=== PATIENT | male | born 1960 | race Caucasian/White ===

== ENCOUNTER 2024-07-15 18:45 | Emergency (ER) | payer MEDICARE, MEDICAID, SELFPAY ==
[2024-07-15 18:50] VITALS: BP 106/56; PULSE 103; RESP 19; TEMP 38.6; O2SAT 97; BMI 29.7
--- NOTE | 2024-07-15 19:03 | XR_ITS ---
Sitting examination: AP chest single view Technique one AP portable semiupright chest single view Exam date and time: July 15, 2024 at 1919 hrs. Indications: Chest pain today. Findings: Normal heart size Lungs are clear. The osseous structures are intact Impression: No active disease
--- NOTE | 2024-07-15 19:04 | EDNOTE_ITS ---
<Statement entered by Charlotte Nesbitt MD - 07/15/24 23:19> As co-signing physician, I was present and available for consult prn. I concur with the plan and care as documented by the midlevel provider. ED General RME/HPI General Chief complaint: Chest Pain Stated complaint: CHEST PAIN Time Seen by Provider: 07/15/24 19:01 Arrival date/time: 07/15/24 18:45 CC: Chest pain left anterior rating to the left armpit onset approximately 1 hour ago EMS report stable vital signs. However upon arrival patient noted to be tachycardic and febrile. Patient states he has had a cough for past several days. Patient is sharp, 3-4 on a 10 scale nonradiating. Prior history of MA Related Data Home Medications ?Medication ?Instructions ?Recorded ?Confirmed atorvastatin 20 mg tablet 40 mg PO QAM 10/07/20 10/22/22 acetaminophen 325 mg tablet 650 mg PO BID Arthritis 04/29/21 10/22/22 (Tylenol) aspirin 81 mg chewable tablet 81 mg PO QAM 04/29/21 10/22/22 clopidogrel 75 mg tablet 1 tab PO QDAY 04/19/22 10/22/22 Allergies Allergy/AdvReac Type Severity Reaction Status Date / Time No Known Allergies Allergy Verified 07/15/24 19:08 Review of Systems Review of Systems Narrative Review of Systems: GEN: No fever, no chills, no weight loss EYES: No discharge, no visual changes, no pain HEENT: No ear pain, no congestion, no sore throat PULM: No shortness of breath, + cough, no congestion CV: + chest pain, no dyspnea on exertion, no palpitations GI: No nausea, no vomiting, no diarrhea, no pain, no constipation : No frequency, no urgency, no dysuria MUSC/SKEL: No joint pain, no back pain SKIN: No rash PSYCH: No hallucinations, no depression HEME/LYMPH: No easy bleeding or bruising tendencies NEURO: No weakness, no headache Past Medical History Past Medical History NEUROLOGIC: Negative Neurological Disorders or Seizures CARDIAC: Positive Myocardial Infarction, Coronary Artery Disease and Hypercholesterolemia; Negative Cardiac Disorders (MA) or Congestive Heart Failure RESPIRATORY: Positive Pneumonia; Negative Chronic Obstructive Pulmonary Disease (COPD) or Asthma GASTROINTESTINAL: Positive Gastrointestinal Disorders, Hiatal Hernia and Gastroesophageal Reflux Disease GENITOURINARY: Negative Genitourinary Disorders or Renal Disease MUSCULOSKELETAL: Positive Musculoskeletal Disorders, Arthritis and Fractures ENT: Positive Ear Infection ENDOCRINE: Negative Endocrine Disorders, Diabetes Mellitus Type 1 or Diabetes Mellitus Type 2 HEMATOLOGIC: Negative Blood Disorders or Sickle Cell Disease OTHER HISTORY: Positive Chicken Pox, Measles and Mumps; Negative Autoimmune Disease, Blood Transfusions, Blood Transfusion Reaction, Anesthesia Reactions or Cancer Family History FAMILY HISTORY: Positive Family Cardiac Disorders, Family Gastrointestinal Problems and Family Cancer; Negative Family Psychiatric Problems, Family Respiratory Disorders, Family Surgery or Family Anesthesia Reaction Surgical History SURGICAL: Positive Cardiac Surgery and Coronary Stent Social History SMOKING STATUS: Current every day smoker SUBSTANCE USE: does not use ED Exam Narrative Physical exam: [General: Obese not in any acute distress Head normocephalic HEENT: Within acceptable limits Neck is supple nontender Chest equal chest rise nontender to palpation Respiratory: Clear to auscultation no wheezes crackles or rubs CV: Rate rhythm is regular no murmurs rubs or clicks Abdomen is soft nontender no masses positive bowel sounds all 4 quadrants Back: No CVA tenderness no spinous process tenderness from cervical spine thoracic and lumbar spine Skin: Intact no petechiae rash induration ulceration or crepitus Extremities: Moving all extremity against resistance cap refill less than 2 seconds neurosensory intact Neuro: Awake alert oriented x3 Glascow coma 15 no focal deficits] Course Quality Measures none Orders Category Date Time Status Bedside COVID-19 Antigen Test NOW Care 07/15/24 19:06 Active Bedside Influenza A&B Antigen Test NOW Care 07/15/24 19:07 Completed Order Checker STAT Care 07/15/24 19:02 Active Continuous Pulse Oximetry STAT Care 07/15/24 19:02 Completed EKG (ED ONLY) *Do not use* NOW Care 07/15/24 19:02 Completed In and Out Catheter X1PRN Care 07/15/24 19:02 Active Insert IV NOW Care 07/15/24 19:02 Active NPO STAT Care 07/15/24 19:02 Active Strict Intake and Output Routine Care 07/15/24 19:02 Ordered EKG (ED Only) Stat Exams 07/15/24 19:02 Ordered XR chest 1V Stat Exams 07/15/24 19:03 Completed B-Type Natriuretic Peptide Stat Lab 07/15/24 19:21 Completed Blood Culture (Lab) Stat Lab 07/15/24 19:26 Received CBC Stat Lab 07/15/24 19:21 Completed Comprehensive Metabolic Panel Stat Lab 07/15/24 19:21 Completed LDH (Lactate Dehydrogenase) Stat Lab 07/15/24 19:21 Completed Lactate (Lactic Acid) Stat Lab 07/15/24 19:21 Completed Lipase Stat Lab 07/15/24 19:21 Completed Magnesium Stat Lab 07/15/24 19:21 Completed Partial Thromboplastin Time Stat Lab 07/15/24 19:21 Completed Phosphorous Stat Lab 07/15/24 19:21 Completed Procalcitonin Stat Lab 07/15/24 19:21 Completed Prothrombin Time with INR Stat Lab 07/15/24 19:21 Completed Troponin I Stat Lab 07/15/24 19:21 Completed Troponin I Stat Lab 07/15/24 21:28 Completed Urinalysis Stat Lab 07/15/24 19:02 Ordered Urine Culture Stat Lab 07/15/24 19:02 Ordered Acetaminophen Tab [Tylenol Tab] Med 07/15/24 19:06 Discontinued 650 mg PO X1 ONE Sodium Chloride 0.9% 1000 ml [Ns] 1,000 ml Med 07/15/24 21:06 Discontinued IV 999 mls/hr Oxygen Delivery NOW RT 07/15/24 19:02 Active Vital Signs Vital signs: Vital Signs Temperature 101.4 F H 07/15/24 18:50 Pulse Rate 103 H 07/15/24 18:50 Respiratory Rate 07/15/24 18:50 Blood Pressure 106/56 L 07/15/24 18:50 Pulse Oximetry (%) 97 07/15/24 18:50 Oxygen Delivery Method Room Air 07/15/24 18:50 [facility] Patient data External records reviewed:: [facility] previous records and EMS form Clinical information provided by:: patient and EMS Social determinants that could affect healthcare access:: none Patient has the following chronic illnesses:: Prior MA blood thinners hypercholesterolemia How is presenting disease/condition affected by chronic disease/condition?: u neffected by Evaluation data The following diagnostics were reviewed and interpreted by me:: lab results, radiology exam(s) and EKG tracing(s) Lab and/or radiology exams considered but not ordered:: EKG performed at 1923 shows a ventricular rate of 9 5 MD interval 146 QRS of 88 QTc of 384 this is sinus rhythm nonspecific ST segment changes CBC shows a mild leukocytosis of 15.2 there is a stable anemia no thrombocytopenia Coags within acceptable limits CMP shows a mildly elevated glucose no other electrolyte imbalances renal impairment transaminitis or T. bili elevation Byrnes Troponin is negative BNP is negative Procalcitonin is 0.07 Lipase is 68 COVID influenza are negative Delta troponin is negative. Interpretation Summary: Chest pain probably noncardiac. The patient did have a temperature I suggest the suspect this is viral syndrome Medications Medications considered but not ordered:: None Medication administrations:: Medication Administration History Discontinued Medications Acetaminophen (Acetaminophen 325 Mg Tablet) 650 mg PO X1 ONE Stop: 07/15/24 19:07 Last Admin: 07/15/24 19:18 Dose: 650 mg Documented By: CVL Sodium Chloride (Ns) 1,000 mls @ 999 mls/hr IV .Q1H1M ONE Stop: 07/15/24 22:06 Last Infusion: 07/15/24 22:10 Dose: Infused Documented By: Admin: 07/15/24 21:11 Dose: 999 mls/hr Documented By: CVL None Consultations Consultation(s) initiated? (list below): No Diagnosis Differential Diagnosis ED Complaint MDM: ACS MA pneumonia sepsis Most likely diagnosis given after review of the tests above:: Chest pain probable noncardiac viral syndrome. Admission Indicated Admission indicated?: not indicated Explain why admission is indicated or not indicated:: Stable for outpatient follow-up Admission Request Was there a request for admission?: No Disposition Plan Disposition Plan: Discharge Discharge Attestation Discharge Attestation: The patient and all family members were given an opportunity to ask questions and understood the discharge instructions. Discharge instructions specifically effects, indications for sooner follow up or return to the emergency department, and the expected course of current diagnosis. Patient condition: Stable Medical Decision Making Differential Diagnosis Differential Diagnosis: ACS MA pneumonia sepsis Lab Data 07/15/24 19:21 07/15/24 19:21 Labs: Lab Results 07/15/24 07/15/24 Range/Units 19:21 21:28 WBC 15.2 H (3.8-10.6) Thou/mm3 RBC 4.20 L (4.50-5.90) Miln/mm3 Hgb 13.4 L (13.5-16.0) g/dL Hct 40.3 L (41.0-53.0) % MCV 96 (80-100) fL MCH 31.9 (25.0-35.0) pg MCHC 33.3 (31.0-37.0) g/dl RDW Std Deviation 44.8 H (35.1-43.9) fL Plt Count 218 (140-440) Thou/mm3 Neut % (Auto) 71 (37-80) % Lymph % (Auto) 17 (10-50) % [place] % (Auto) 9 (0-12) % Eos % (Auto) 3 (0-10) % Baso % (Auto) 0 (0-2.5) % Neut # (Auto) 10.8 H (1.8-7.7) Thou/mm3 Lymph # (Auto) 2.5 (1.0-4.8) Thou/mm3 [place] # (Auto) 1.3 H (0.0-0.8) Thou/mm3 Eos # (Auto) 0.4 (0.0-0.5) Thou/mm3 Baso # (Auto) 0.1 (0.0-0.2) Thou/mm3 Immature Gran # (Auto) 0.05 H (0.00-0.00) Thou/mm3 Absolute Nucleated RBC 0.00 (0.00-0.00) Thou/mm3 Immature Gran % 0 (0-0) % Nucleated RBC % 0 (0) /100 WBC PT 10.9 (9.0-12.2) Seconds INR 1.0 (0.9-1.3) APTT 23.1 (22.0-36.0) Seconds Sodium 138 (136-145) mMol/L Potassium 3.9 (3.4-5.1) mMol/L Chloride 107 (98-107) mMol/L Carbon Dioxide 25.3 (20.0-31.0) mMol/L Anion Gap 6 L (7-16) BUN 14 (9-23) mg/dL Creatinine 1.0 (0.6-1.3) mg/dL Estim Creat Clear Calc 77.2 (>60) mL/min eGFR > 60 (60 - ) See Note BUN/Creatinine Ratio 14 (12-20) Ratio Glucose 126 H (74-106) mg/dL Calculated Osmolality 278 (275-295) Lactic Acid 1.2 (0.4-2.0) mMol/L Calcium 9.5 (8.3-10.6) mg/dL Corrected Calcium 9.5 (8.5-10.1) mg/dL Phosphorus 2.1 L (2.4-5.1) mg/dL Magnesium 2.0 (1.6-2.6) mg/dL Total Bilirubin 0.5 (0.3-1.2) mg/dL AST 21 (0-34) U/L ALT 24 (10-49) U/L Alkaline Phosphatase 99 (46-116) U/L Lactate Dehydrogenase 158 (120-246) U/L Troponin I < 0.020 < 0.020 (0.0-0.045) ng/mL B-Natriuretic Peptide < 20 (0-100) pg/mL Total Protein 7.1 (5.7-8.2) gm/dL Albumin 4.7 (3.4-4.8) gm/dL Globulin 2.4 (2.3-3.5) gm/dL Albumin/Globulin Ratio 2.0 (1.2-2.2) Lipase 68 H (12-53) U/L Procalcitonin 0.07 (0.0-0.49) ng/ml Discharge Plan Plan Patient Disposition: HOME (Self Care) Patient condition on transfer: Stable Prescriptions/Referrals Prescriptions/Med Rec: No Action atorvastatin 20 mg Tablet 40 mg PO QAM acetaminophen [Tylenol] 325 mg Tablet 650 mg PO BID aspirin 81 mg Tablet,Chewable 81 mg PO QAM Hold Instructions: Resume on 04/21/22. Rx Instructions: STOPPED ON Tuesday04/27/[address]'S ORDERS FOR 7 DAYS clopidogrel 75 mg tablet 1 tab PO QDAY Hold Instructions: Resume on 04/23/22. 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
[2024-07-15 19:18] VITALS: TEMP 38.6
[2024-07-15] MEDS: ACETAMINOPHEN 325 MG TABLET 650 MG PO (19:18)
[2024-07-15 19:21] VITALS: PULSE 107
[2024-07-15 19:33] LABS: Lactate (Lactic Acid) 1.2 mMol/L (0.4-2.0)
[2024-07-15 19:38] LABS: Basophils # (Auto) 0.1 Thou/mm3 (0.0-0.2); Basophils % (Auto) 0 % (0-2.5); Eosinophils # (Auto) 0.4 Thou/mm3 (0.0-0.5); Eosinophils % (Auto) 3 % (0-10); Hematocrit 40.3 % (41.0-53.0); Hemoglobin 13.4 g/dL (13.5-16.0); Immature Granulocytes % (Auto) 0 % (0-0); Immature Granulocytes Auto 0.05 Thou/mm3 (0.00-0.00); Lymphocytes # (Auto) 2.5 Thou/mm3 (1.0-4.8); Lymphocytes % (Auto) 17 % (10-50); Mean Corpuscular HGB Conc 33.3 g/dl (31.0-37.0); Mean Corpuscular Hemoglobin 31.9 pg (25.0-35.0); Mean Corpuscular Volume 96 fL (80-100); Monocytes # (Auto) 1.3 Thou/mm3 (0.0-0.8); Monocytes % (Auto) 9 % (0-12); Neutrophils # (Auto) 10.8 Thou/mm3 (1.8-7.7); Neutrophils % (Auto) 71 % (37-80); Nucleated Red Blood Cell % 0 /100 WBC (0); Platelet Count 218 Thou/mm3 (140-440); RDW Standard Deviation 44.8 fL (35.1-43.9); White Blood Count 15.2 Thou/mm3 (3.8-10.6)
[2024-07-15 19:49] LABS: B-Type Natriuretic Peptide < 20 pg/mL (0-100); Partial Thromboplastin Time 23.1 Seconds (22.0-36.0); Prothrombin Time 10.9 Seconds (9.0-12.2)
[2024-07-15 19:57] LABS: Alanine Aminotransferase 24 U/L (10-49); Albumin, Serum 4.7 gm/dL (3.4-4.8); Alkaline Phosphatase 99 U/L (46-116); Anion Gap 6 (7-16); Aspartate Amino Transferase 21 U/L (0-34); BUN/Creatinine Ratio 14 Ratio (12-20); Bilirubin,Total 0.5 mg/dL (0.3-1.2); Blood Urea Nitrogen 14 mg/dL (9-23); Calcium 9.5 mg/dL (8.3-10.6); Calcium (Corrected) 9.5 mg/dL (8.5-10.1); Carbon Dioxide 25.3 mMol/L (20.0-31.0); Chloride 107 mMol/L (98-107); Estimated Creatinine Clearance 77.2 mL/min (>60); Globulin 2.4 gm/dL (2.3-3.5); Glucose 126 mg/dL (74-106); LDH (Lactate Dehydrogenase) 158 U/L (120-246); Lipase 68 U/L (12-53); Osmolality,Calculated 278 (275-295); Phosphorous 2.1 mg/dL (2.4-5.1); Potassium 3.9 mMol/L (3.4-5.1); Procalcitonin 0.07 ng/ml (0.0-0.49); Sodium 138 mMol/L (136-145); Total Protein 7.1 gm/dL (5.7-8.2); Troponin I < 0.020 ng/mL (0.0-0.045); eGFR > 60 See Note
[2024-07-15 21:03] VITALS: BP 91/48; PULSE 89; RESP 19; TEMP 37.7; O2SAT 96
[2024-07-15 21:10] VITALS: TEMP 37.7
[2024-07-15] MEDS: SODIUM CHLORIDE 0.9% 1000 ML 1,000 ML 999 ML IV (21:11)
[2024-07-15 22:26] LABS: Troponin I < 0.020 ng/mL (0.0-0.045)
[2024-07-15 22:53] LABS: Collection Type, Urine Clean Catch; RBC,Urine 0 /hpf (0-3); Squamous Epithelial Cell,Urine 0 /hpf (0-5); WBC,Urine 0 /hpf (0-5)
[2024-07-15 23:21] LABS: Bilirubin,Urine Negative (Negative); Blood,Urine Negative (Negative); Clarity,Urine Clear (Clear/Hazy); Color,Urine Yellow (Lt Yel-Yel); Glucose, Urine Negative (Negative); Ketones,Urine Negative (Negative); Leukocyte Esterase,Urine Negative (Negative); Nitrite,Urine Negative (Negative); PH,Urine 6.5 (5.0-7.0); Protein,Urine Trace (Neg - Trace); Specific Gravity,Urine 1.029 (1.001-1.035); Urobilinogen,Urine Negative mg/dL (0.0-1.0)
[2024-07-15 23:37] VITALS: BP 115/61; PULSE 98; RESP 21; O2SAT 97
== END 2024-07-15 23:39 | disposition home or self-care (01) ==
LOC: SERX 23:35
PROVIDERS: Registered Nurse General Practice; Emergency Provider Emergency Medicine
DX: R07.9 Chest pain, unspecified (principal); R50.9 Fever, unspecified; R94.31 Abnormal electrocardiogram [ECG] [EKG]; E78.00 Pure hypercholesterolemia, unspecified; I25.2 Old myocardial infarction; I25.10 Atherosclerotic heart disease of native coronary artery without angina pectoris; F17.210 Nicotine dependence, cigarettes, uncomplicated; Z95.5 Presence of coronary angioplasty implant and graft
CPT/HCPCS: 36415; 71045; 80053; 81001; 83605; 83615; 83690; 83735; 83880; 84100; 84145; 84484; 85025; 85610; 85730; 87040; 87086; 87400; 87811; 93005; 96360; 99283; J7030; A9270

== ENCOUNTER → 2025-02-18 | Outpatient (CLI) | payer MEDICARE, MEDICAID, SELFPAY ==
--- NOTE | 2025-02-18 10:02 | XR_ITS ---
Examination: PA lateral chest 2 views TECHNIQUE: Upright PA lateral chest 2 views Date and time: February 18, 2025 1059 hours INDICATIONS: Coughing shortness of breath beginning 2 weeks ago. FINDINGS: Early pneumonia right middle lobe. Left lung clear. Normal heart size. IMPRESSION: Early pneumonia right middle lobe
== END | disposition home or self-care (01) ==
LOC: SDIM 09:49
PROVIDERS: PCP Internal Medicine
DX: J18.9 Pneumonia, unspecified organism (principal)
CPT/HCPCS: 71046

== ENCOUNTER 2025-05-20 02:24 | Emergency (ER) | payer MEDICARE, MEDICAID, SELFPAY ==
[2025-05-20 02:35] VITALS: BP 118/69; PULSE 82; RESP 19; TEMP 36.7; O2SAT 96; BMI 30.5
--- NOTE | 2025-05-20 02:35 | PD.EDBACK ---
ED Back Injury Pain RME/HPI General Chief Complaint: Back Pain/Injury Stated Complaint: lower back pain Time Seen by Provider: 05/20/25 02:43 Arrival date/time: 05/20/25 02:24 RME / HPI RME / HPI Narrative: See MDM for Dr. Hawthorne's HPI documentation. Related Data Home Medications ?Medication ?Instructions ?Recorded ?Confirmed atorvastatin 20 mg tablet 40 mg PO QAM 10/07/20 10/22/22 acetaminophen 325 mg tablet 650 mg PO BID Arthritis 04/29/21 10/22/22 (Tylenol) aspirin 81 mg chewable tablet 81 mg PO QAM 04/29/21 10/22/22 Held on 04/20/22. Instructions: Resume on 04/21/22. clopidogrel 75 mg tablet 1 tab PO QDAY 04/19/22 10/22/22 Held on 04/20/22. Instructions: Resume on 04/23/22. Previous Rx's ?Medication ?Instructions ?Recorded acetaminophen 300 mg-codeine 30 mg 2 tab PO Q8H PRN pain #20 tabs 05/20/25 tablet cyclobenzaprine 5 mg tablet 5 mg PO TID PRN muscle spasm #15 05/20/25 tabs lidocaine 5 % topical patch 2 patch topical QDAY PRN pain #30 05/20/25 (Lidoderm) ea Allergies Allergy/AdvReac Type Severity Reaction Status Date / Time No Known Allergies Allergy Verified 07/15/24 19:08 Review of Systems Review of Systems Systems Reviewed: All systems reviewed, normal except as documented Past Medical History Past Medical History NEUROLOGIC: Negative Neurological Disorders or Seizures CARDIAC: Positive Myocardial Infarction, Coronary Artery Disease and Hypercholesterolemia; Negative Cardiac Disorders or Congestive Heart Failure RESPIRATORY: Positive Pneumonia; Negative Chronic Obstructive Pulmonary Disease (COPD) or Asthma GASTROINTESTINAL: Positive Gastrointestinal Disorders, Hiatal Hernia and Gastroesophageal Reflux Disease GENITOURINARY: Negative Genitourinary Disorders or Renal Disease MUSCULOSKELETAL: Positive Musculoskeletal Disorders, Arthritis and Fractures ENT: Positive Ear Infection ENDOCRINE: Negative Endocrine Disorders, Diabetes Mellitus Type 1 or Diabetes Mellitus Type 2 HEMATOLOGIC: Negative Blood Disorders or Sickle Cell Disease OTHER HISTORY: Positive Chicken Pox, Measles and Mumps; Negative Autoimmune Disease, Blood Transfusions, Blood Transfusion Reaction, Anesthesia Reactions or Cancer Family History FAMILY HISTORY: Positive Family Cardiac Disorders, Family Gastrointestinal Problems and Family Cancer; Negative Family Psychiatric Problems, Family Respiratory Disorders, Family Surgery or Family Anesthesia Reaction Surgical History SURGICAL: Positive Cardiac Surgery and Coronary Stent Social History SMOKING STATUS: Former smoker SUBSTANCE USE: does not use ED Exam Narrative Physical exam: See [facility] for Dr. Hawthorne's physical exam documentation. Course Quality Measures none Orders Category Date Time Status CT lumbar spine wo con Stat Exams 05/20/25 02:48 Taken Morphine* Inj Med 05/20/25 02:47 Discontinued 8 mg IM X1 ONE Ondansetron Odt [Zofran Odt] Med 05/20/25 02:47 Discontinued 4 mg PO X1 ONE Vital Signs Vital signs: Vital Signs Temperature 98.1 F 05/20/25 02:35 Pulse Rate 82 05/20/25 02:35 Respiratory Rate 19 05/20/25 02:35 Blood Pressure 118/69 05/20/25 02:35 Pulse Oximetry (%) 96 05/20/25 02:35 Oxygen Delivery Method Room Air 05/20/25 02:35 Back Pain / Injury [facility] Narrative [facility] Narrative:: This section includes all my notes and documentations, including HPI, PE, and ED course. David Hawthorne MD HPI: 64yo male here with severe lower back pain since 6 PM, about 8 hours ago. 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 No radiation of the pain into the legs. No paralysis. No loss of control of bladder or bowels. No saddle numbness. No other complaints. ROS: All negative except as documented in HPI. Physical Exam: General: Alert and oriented. In severe pain. Eyes: Conjunctivae and lids clear. ENT: No nasal congestion. Neck: Supple. Lungs: No respiratory distress. Abdomen: Soft and nontender. Normal bowel sounds. No distension. No rebound or guarding. Back: Equivocal lumbar spinal tenderness. Skin: Warm and dry. Neuro: Alert and oriented X 3. No peripheral motor deficits. I reviewed all diagnostic test results. My review of the CT lumbar spine report is unremarkable. At this point, diagnoses include: Low back sprain Treatment here included: Morphine 8 mg IM Zofran ODT 4 mg Significant improvement noted. Recommended supportive care. Based on my best medical judgment, made decision no further evaluation or treatment indicated at this time. Patient understands and agrees to the discharge instructions customized and printed, see below. Discharge Instructions from Dr. Hawthorne: --After evaluation, there is no emergency, such as fracture or complete compression of your spinal cord needing emergent surgery. --You sustained severe low back sprain (small tears of the soft tissues, such as muscles and ligaments). Will heal in a few weeks. See attached handout. --Rest today and tomorrow then try to resume your normal chores and activities. Because inactivity is terrible for your back and your body. And activity won?t make your condition worse. Use a cane of stick to help stand and walk. --Apply ice for 20 minutes every 2-3 hours today and tomorrow. --Cyclobenzaprine and Tylenol with codeine and lidocaine patches as needed. --See a private doctor (outside the ER) on 05/24/2025 for further care. If not significant better, ask to help you get more care not available here in the ER. Such as MRI imaging, physical therapy, and referrals to see specialists. --Seek immediate medical care with intolerable pain, paralysis in your foot, losing control of your bladder or bowels, saddle numbness (anal numbness), or with any concerns. David Hawthorne MD Patient data External records reviewed:: [facility] previous records (Per chart review, patient was seen here on 07/15/24 for chest pain.) Clinical information provided by:: patient Social determinants that could affect healthcare access:: none Patient has the following chronic illnesses:: CAD, HTN How is presenting disease/condition affected by chronic disease/condition?: uneffected by Evaluation data The following diagnostics were reviewed and interpreted by me:: radiology exam(s) Lab and/or radiology exams considered but not ordered:: none Interpretation Summary: I reviewed all diagnostic test results. My review of the CT lumbar spine report is unremarkable. Medications / Prescriptions Medications or Prescriptions considered but not ordered:: none Medication administrations:: Medication Administration History Discontinued Medications Morphine Sulfate (Morphine Sulf Inj 4 Mg/Ml Vial) 8 mg IM X1 ONE Stop: 05/20/25 02:48 Last Admin: 05/20/25 02:54 Dose: 8 mg Documented By: DANETTE Ondansetron HCl (Ondansetron Odt 4 Mg Tabrap) 4 mg PO X1 ONE; Protocol Stop: 05/20/25 02:48 Last Admin: 05/20/25 02:54 Dose: 4 mg Documented By: DANETTE Morphine 8 mg IM Zoframerica ODT 4 mg Consultations Consultation(s) initiated? (list below): No Diagnosis Differential diagnosis back pain/injury: lumbar radiculopathy, sciatica and strain of lumbar region Most likely diagnosis given after review of the tests above:: Low back sprain Admission Indicated Admission indicated?: not indicated Explain why admission is indicated or not indicated:: With significant improvement and no condition needing emergent intervention, there was no indication for admission. Admission Request Was there a request for admission?: No Disposition Plan Disposition Plan: Discharge Discharge Attestation Discharge Attestation: The patient and all family members were given an opportunity to ask questions and understood the discharge instructions. Discharge instructions specifically effects, indications for sooner follow up or return to the emergency department, and the expected course of current diagnosis. Patient condition: Stable Discharge Plan Plan Patient Disposition: HOME (Self Care) Prescriptions/Referrals Prescriptions/Med Rec: New acetaminophen-codeine 300-30 mg tablet 2 tab PO Q8H MDD 6 PRN (Reason: pain) Qty: 20 0RF lidocaine [Lidoderm] 5 % adhesive patch,medicated 2 patch topical QDAY PRN (Reason: pain) Qty: 30 0RF Rx Instructions: leave on most painful area for up to 12 hrs cyclobenzaprine 5 mg tablet 5 mg PO TID PRN (Reason: muscle spasm) Qty: 15 0RF No Action atorvastatin 20 mg Tablet 40 mg PO QAM acetaminophen [Tylenol] 325 mg Tablet 650 mg PO BID aspirin 81 mg Tablet,Chewable 81 mg PO QAM Rx Instructions: STOPPED ON Tuesday04/27/[address]'S ORDERS FOR 7 DAYS clopidogrel 75 mg tablet 1 tab PO QDAY Patient Comments: take 1 tablet by mouth once daily Referrals: Luke Ramires MD [Primary Care Provider] - In 1 week Problem List Clinical Impression: Low back sprain Patient/Caregiver Discharge Instructions Discharge Activity: activity as tolerated Education Materials: ED Back Sprain/Strain Additional Instructions: Discharge Instructions from Dr. Hawthorne: --After evaluation, there is no emergency, such as fracture or complete compression of your spinal cord needing emergent surgery.? --You sustained severe low back sprain (small tears of the soft tissues, such as muscles and ligaments). Will heal in a few weeks. See attached handout. --Rest today and tomorrow then try to resume your normal chores and activities.? Because inactivity is terrible for your back and your body.? And activity won?t make your condition worse.? Use a cane of stick to help stand and walk.? --Apply ice for 20 minutes every 2-3 hours today and tomorrow. --Cyclobenzaprine and Tylenol with codeine and lidocaine patches as needed.? --See a private doctor (outside the ER) on 05/24/2025 for further care. If not significant better, ask to help you get more care not available here in the ER.? Such as MRI imaging, physical therapy, and referrals to see specialists.? --Seek immediate medical care with intolerable pain, paralysis in your foot, losing control of your bladder or bowels, saddle numbness (anal numbness), or with any concerns.?? Print Language: Omani Stand Alone Forms: Lorenza Award Info., Patient Portal Info Letter
--- NOTE | 2025-05-20 02:48 | XR_ITS ---
Examination: CT lumbar spine, without contrast. 2-D sagittal reconstructions. 2-D coronal reconstructions. 3-D reconstructions. Date and time of exam: May 20, 2025, 0303 hours INDICATIONS: Lower back pain radiating down the legs, severe this week CTDI: vol (mGy): 26.4 DLP: (mGycm): 822 Technique: Multiple 1.25 mm axial sections of the lumbar spine without intravenous contrast have been obtained. 2-D sagittal and coronal reconstructions have been obtained. 3-D reconstructions have been obtained. Low dose protocols were performed. One or more of the following dose reduction techniques were used; automated exposure control, adjustment of the mA and/or KV according to patient size, use of iterative reconstruction technique. Findings: Severe osteopenia No lumbar fracture Moderate lumbar spondylosis Lumbar pedicles, laminae, transverse and posterior spinous processes intact L5-S1 no disc protrusion L4-L5 no disc protrusion L3-L4 no disc protrusion L2-L3 no disc protrusion IMPRESSION: No lumbar fracture No focal lumbar disc protrusion Consider MRI lumbar spine without contrast follow-up
[2025-05-20] MEDS: MORPHINE SULF INJ 4 MG/ML VIAL 8 MG IM (02:54)
[2025-05-20] MEDS: ONDANSETRON ODT 4 MG TABRAP PO (02:54)
[2025-05-20 03:40] VITALS: BP 94/63; PULSE 80; RESP 18; O2SAT 96
--- NOTE | 2025-05-20 03:57 | PRELIM_ITS ---
CT scan of the lumbar spine without intravenous contrast (axial sections with sagittal and coronal reformats). May 20, 2025 0303 hours Clinical History: Severe radicular pain Comparison: None Findings: There is generalized osteopenia. There is no fracture, traumatic subluxation or other acute osseous abnormality of the lumbar spine. There are multilevel degenerative disc changes and spondylosis of the lumbar spine with mild multilevel foraminal stenosis. There is no spinal canal stenosis. There is degenerative change at the SI joints. There are vascular calcifications along the abdominal aorta and iliac arteries without aneurysmal dilatation. Impression: No acute osseous abnormality of the lumbar spine. Degenerative change with mild multilevel foraminal stenosis. No spinal canal stenosis. Report Electronically Signed By: King Raphael 05/20/2025 3:56:38 AM [EST]
[2025-05-20 04:30] VITALS: BP 109/60; PULSE 79; RESP 18; TEMP 36.6; O2SAT 96
== END 2025-05-20 04:30 | disposition home or self-care (01) ==
PROVIDERS: Emergency Provider Emergency Medicine; PCP Internal Medicine
DX: S33.9XXA Sprain of unspecified parts of lumbar spine and pelvis, initial encounter (principal); X50.0XXA Overexertion from strenuous movement or load, initial encounter
CPT/HCPCS: 72131; 96372; 99283; J2270; Q0162